=== PATIENT | male | born 1960 | race Two or more races ===

== ENCOUNTER 2022-08-05 03:17 | Emergency (ER) | payer MEDICAID, OTHER ==
[~2022-08-05] VITALS: Ht 167.6 cm; Wt 80.0 kg
[~2022-08-05 03:17] MED LIST: ASPI-1406 MT; ATOR20TA PO; COR3 PO; FOLI-43 PO; THIA100T72 PO
[2022-08-05 04:15] VITALS: BP 161/85
[2022-08-05] MEDS ORDERED: IBUPROFEN 400MG TABLET PO ONE (04:15)
== END 2022-08-05 06:18 | disposition home or self-care (01) ==
LOC: ER 03:17
DX: Z00.00 Encounter for general adult medical examination without abnormal findings (principal); R51.9 Headache, unspecified
CPT/HCPCS: 99283

== ENCOUNTER 2023-02-15 17:27 | Emergency (ER) | payer SELFPAY ==
[~2023-02-15] VITALS: Ht 175.3 cm; Wt 100.0 kg
[2023-02-15 17:28] VITALS: O2SAT 96
[2023-02-15] MEDS ORDERED: SODIUM CHLORIDE 0.9% 1,000 ML IV ONE (17:45)
[2023-02-15] MEDS ORDERED: ONDANSETRON HCL 4MG/2ML INJ IV STA (17:45)
[2023-02-15 18:07] VITALS: BP 118/68; PULSE 71; RESP 17; TEMP 98.2
[2023-02-15 18:12] LABS: BASOPHILS % 0.3 % (0.0-2.0); EOSINOPHILS % 0.9 % (0.0-5.0); HEMATOCRIT. 39.5 % (42.0-52.0); HEMOGLOBIN. 12.9 g/dL (14.0-18.0); LYMPHOCYTES % 21.5 % (20.0-50.0); MEAN CORPUSCULAR HEMOGLOBIN 29.4 pg (28.0-32.0); MEAN CORPUSCULAR HGB CONC 32.7 g/dL (31.0-37.0); MEAN CORPUSCULAR VOLUME 89.9 fL (80.0-94.0); MONOCYTES % 9.2 % (2.0-8.0); NEUTROPHILS % 68.1 % (40.0-76.0); PLATELET 269 x1000/uL (130-400); RED BLOOD CELL COUNT 4.39 mill/uL (4.7-6.1); RED CELL DISTRIBUTION WIDTH 15.1 % (11.6-14.6); WHITE BLOOD COUNT 5.3 x1000/uL (4.5-11.0)
[2023-02-15 18:20] LABS: INR 1.1; PROTHROMBIN TIME 11.4 sec (9.6-11.0)
[2023-02-15 18:32] LABS: ALANINE AMINOTRANSFERASE 41 IU/L (10-49); ALBUMIN 4.2 g/dL (3.2-4.8); ASPARTATE AMINOTRANSFERASE 29 IU/L (<34); BILIRUBIN TOTAL 0.7 mg/dL (0.1-1.0); CALCIUM 9.3 mg/dL (8.7-10.4); CARBON DIOXIDE 25 mEq/L (21-32); CHLORIDE 104 mEq/L (98-107); GLUCOSE 146 mg/dL (70-105); POTASSIUM 3.8 mEq/L (3.5-5.1); PROTEIN TOTAL 7.8 g/dL (6.0-8.3); SODIUM 139 mEq/L (136-145); TROPONIN I HIGH SENSITIVITY 6 ng/L (3.0-53); UREA NITROGEN BLOOD 11 mg/dL (9-23)
[2023-02-15 18:36] LABS: LACTIC ACID 2.2 mmol/L (0.4-2.0)
[2023-02-15] MEDS ORDERED: ONDA4TAB11 PO (20:39)
== END 2023-02-15 21:57 | disposition home or self-care (01) ==
LOC: ER 17:27
DX: R11.10 Vomiting, unspecified (principal); R19.7 Diarrhea, unspecified; R10.9 Unspecified abdominal pain; E78.00 Pure hypercholesterolemia, unspecified; I10 Essential (primary) hypertension; Z86.73 Personal history of transient ischemic attack (TIA), and cerebral infarction without residual deficits
CPT/HCPCS: 80053; 83605; 83690; 85025; 85610; 84484; 36415; 93005; 96361; 96374; 99284; J2405; J7030; Z7610 ×4